=== PATIENT | female | born 1940 | race Caucasian/White ===

== ENCOUNTER → 2019-10-08 | Outpatient (CLI) | payer MEDICARE ==
[~2019-10-08] MED LIST: LEVO100T PO; LEVO88TA2 PO; LOSA50TA14 PO; METF500T17 PO; MULT-658 PO; NAPR220C2 PO
[2019-10-08 09:35] LABS: BASOPHILS # (AUTO) 0.03 x10^3/uL (0-0.1); BASOPHILS % (AUTO) 0 % (0-1); EOSINOPHILS # (AUTO) 0.08 x10^3/uL (0-0.4); EOSINOPHILS % (AUTO) 1 % (1-7); LYMPHOCYTES # (AUTO) 1.48 x10^3/uL (1-3.4); LYMPHOCYTES % (AUTO) 21 % (22-44); MD NO; MEAN CORPUSCULAR HEMOGLOBIN 27.4 pg (27.0-34.8); MEAN CORPUSCULAR HGB CONC 32.7 g/dL (32.4-35.8); MEAN CORPUSCULAR VOLUME 83.5 fL (80-100); MEAN PLATELET VOLUME 8.1 fL (7.4-10.4); MONOCYTES # (AUTO) 0.52 x10^3/uL (0.2-0.8); MONOCYTES % (AUTO) 7 % (2-9); NEUTROPHILS # (AUTO) 5.03 x10^3/uL (1.8-6.8); NEUTROPHILS % (AUTO) 71 % (42-75); PLATELET COUNT 251 x10^3/uL (130-400); RED BLOOD COUNT 5.15 x10^6/uL (3.82-5.3)
[2019-10-08 09:42] LABS: MICROSCOPIC AUTO
[2019-10-08 09:44] LABS: ALANINE AMINOTRANSFERASE 21 U/L (12-78); ALBUMIN 3.6 g/dL (3.4-5.0); ANION GAP 6 mmol/L (5-15); CALCIUM 9.3 mg/dL (8.5-10.1); CHLORIDE 106 mmol/L (98-107); CREATININE 0.82 mg/dL (0.55-1.02)
[2019-10-08 09:47] LABS: ALKALINE PHOSPHATASE 126 U/L (45-117); BILIRUBIN,TOTAL 0.4 mg/dL (0.2-1.0); TOTAL PROTEIN 7.8 g/dL (6.4-8.2)
== END | disposition home or self-care (01) ==
LOC: STAR 08:13
PROVIDERS: ATTEND Obstetrics & Gynecology Gynecology
DX: Z01.818 Encounter for other preprocedural examination (principal); N81.11 Cystocele, midline; N81.12 Cystocele, lateral; N81.6 Rectocele
CPT/HCPCS: 36415; 71046; 80053; 81001; 85025; 87086; 93005

== ENCOUNTER 2019-10-12 07:13 | Day surgery (SDC) | payer MEDICARE ==
[~2019-10-12] VITALS: Ht 167.6 cm; Wt 88.6 kg
[2019-10-12] MEDS ORDERED: LACTATED RINGERS 1,000 ML IV SCH (07:46)
[2019-10-12 07:48] VITALS: BP 177/92
[2019-10-12] MEDS ORDERED: CHLORHEXIDINE 15 ML UDC MM ONE (08:00)
[2019-10-12] MEDS ORDERED: ACETAMINOPHEN 500 MG TABLET PO ONE (08:00)
[2019-10-12] MEDS ORDERED: OXYcodone 5 MG/5 ML ORAL.SOL UDC PO PRN (08:30)
[2019-10-12] MEDS ORDERED: DIPHENHYDRAMINE 50 MG/ML, 1ML IVPush PRN (08:30)
[2019-10-12] MEDS ORDERED: HYDROmorphone 1 MG/ML, 1ML INJ IVPush PRN (08:30)
[2019-10-12] MEDS ORDERED: PROMETHAZINE 25 MG/ML, 1ML IVPush PRN (08:30)
[2019-10-12] MEDS ORDERED: MEPERIDINE/PF 25MG/0.5ML IVPush PRN (08:30)
[2019-10-12] MEDS ORDERED: FENTANYL PF 100 MCG/2ML IV PRN (08:30)
[2019-10-12] MEDS ORDERED: FENTANYL PF 100 MCG/2ML ONE (08:30)
[2019-10-12] MEDS ORDERED: HALOPERIDOL 5 MG/ML IV PRN (08:30)
[2019-10-12] MEDS ORDERED: FLUORESCEIN SODIUM 500 MG/5 ML ONE (08:58)
[2019-10-12] MEDS ORDERED: LIDOCAINE 1%-EPI 1:100K, 20ML ONE (08:58)
[2019-10-12] MEDS ORDERED: NEOSTIGMINE 1 MG/ML, 10ML ONE (10:25)
[2019-10-12] MEDS ORDERED: PROPOFOL 10 MG/ML, 20ML ONE (10:25)
[2019-10-12] MEDS ORDERED: ONDANSETRON 2MG/ML, 2ML ONE (10:25)
[2019-10-12] MEDS ORDERED: ROCURONIUM 10MG/ML,5ML ONE (10:25)
[2019-10-12] MEDS ORDERED: SUCCINYLCHOLINE 20 MG/ML, 10ML ONE (10:25)
[2019-10-12] MEDS ORDERED: CEFAZOLIN 1,000 MG ONE (10:25)
[2019-10-12] MEDS ORDERED: DEXAMETHASONE 4 MG/ML, 1ML ONE (10:25)
[2019-10-12] MEDS ORDERED: GLYCOPYRROLATE 0.2MG/1ML, 5ML ONE (10:25)
[2019-10-12] MEDS ORDERED: KETOROLAC 30 MG/1 ML ONE (10:26)
[2019-10-12] MEDS ORDERED: LABETALOL 5MG/ML, 20ML ONE (11:15)
[2019-10-12] MEDS: LABETALOL 5MG/ML, 20ML IV PRN ×3 (11:16→12:20)
[2019-10-12] MEDS ORDERED: hydrALAzine 20 MG/ML, 1ML ONE ×2 (12:34→13:14)
[2019-10-12] MEDS: hydrALAzine 20 MG/ML, 1ML IV PRN ×2 (12:35→13:15)
== END 2019-10-12 16:30 | disposition home or self-care (01) ==
LOC: OUT 07:13
PROVIDERS: ATTEND Obstetrics & Gynecology Gynecology
DX: N81.10 Cystocele, unspecified (principal); Z11.59 Encounter for screening for other viral diseases; N81.5 Vaginal enterocele; N81.6 Rectocele; I10 Essential (primary) hypertension; E11.9 Type 2 diabetes mellitus without complications; E03.9 Hypothyroidism, unspecified; Z79.84 Long term (current) use of oral hypoglycemic drugs; Z79.890 Hormone replacement therapy; Z79.899 Other long term (current) drug therapy; Z88.8 Allergy status to other drugs, medicaments and biological substances; Z98.890 Other specified postprocedural states
CPT/HCPCS: 57265; 82962; 93005; J0330; J0360; J0690; J1100; J1885; J2405; J2704; J3010; J3490; J7120; U0001; J2710